=== PATIENT | male | born 1975 | race Caucasian/White ===

== ENCOUNTER → 2018-05-25 14:32 | Outpatient (CLI) | payer OTHER, MEDICAID, SELFPAY ==
--- NOTE | 2018-05-25 | DI.RAD.S_ITS ---
PROCEDURE: XR LUMBAR SPINE 2-3V INDICATIONS: LOW BACK PAIN WITH RADICULOPATHY TECHNIQUE: 3 views of the lumbar spine were acquired. COMPARISON: [facility], , -SPINE 2-3 VIEWS, 06/22/2016, 11:56. FINDINGS: Bones: 5 ekq-wvf-robaytq vertebrae are present. There is normal bony alignment established after L5-S1 posterior fixation bilaterally with interbody disc prosthesis at L5-S1 also present in expected position.. No vertebral body compression fractures. No suspicious bony lesions. Soft tissues: Overlying bowel gas pattern is normal. No suspicious soft tissue calcifications. IMPRESSION: Normal anatomic alignment established after posterior fixation and interbody disc prosthesis placement L5-S1. Dictated by: Jalen Zamorano M.D. on 05/25/2018 at 15:26 Approved by: Jalen Zamorano M.D. on 05/25/2018 at 15:27
== END ==
PROVIDERS: Family Provider Family Medicine; PCP Family Medicine; Visit Provider Family Medicine
DX: M54.5 Low back pain (principal); M54.16 Radiculopathy, lumbar region
CPT/HCPCS: 72100

== ENCOUNTER 2018-10-20 18:17 | Emergency (ER) | payer OTHER, MEDICAID, SELFPAY ==
[2018-10-20 18:54] VITALS: BP 148/93; PULSE 73; RESP 14; TEMP 37; O2SAT 97
--- NOTE | 2018-10-20 19:00 | DI.RAD.S_ITS ---
PROCEDURE: XR ANKLE LT MIN 3V INDICATIONS: rolled ankle TECHNIQUE: 3 views of the ankle were acquired. COMPARISON: None. FINDINGS: Bones: No fractures or dislocations. Ankle mortise is normally aligned. No suspicious bony lesions. Soft tissues: No tibiotalar joint effusion. Achilles tendon appears normal. IMPRESSION: No acute fracture. No osseous lesion. If clinical suspicion and/or symptoms persist, further assessment with repeat plainfilms, or advanced imaging (e.g., CT, MRI, or bone scan) may be helpful for further assessment. Dictated by: Kelsy Mcdonald M.D. on 10/20/2018 at 19:23 Approved by: Kelsy Mcdonald M.D. on 10/20/2018 at 19:23
--- NOTE | 2018-10-20 20:40 | ED_ITS ---
HPI - Extremity Injury (Lower) <Brenda Mathis PA-C - Last Filed: 10/20/18 22:22> General Chief Complaint: Extremity Injury, Lower Stated Complaint: LEFT FOOT INJURY Time Seen by Provider: 10/20/18 20:39 Source: patient Mode of arrival: ambulatory Limitations: no limitations History of Present Illness HPI Narrative: this 42-year-old male states that he was coming out of his RV when he tripped off of the bottom step and inverted his left ankle. He states that he had pain right away and was unable to bear weight on it. He states that he had to hop about 100 ft into the house. He elevated and iced it and took some ibuprofen the, and after resting a while was still unable to bear weight on it so came in here to evaluate for fracture. He denies any other injury or pain. He did take some ibuprofen at home and takes meloxicam twice daily regularly. 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 Related Data Home Medications Medication Instructions Recorded Confirmed meloxicam 7.5 mg PO BID 10/20/18 10/20/18 Allergies Allergy/AdvReac Type Severity Reaction Status Date / Time No Known Drug Allergies Allergy Verified 10/20/18 21:04 Review of Systems <Brenda Mathis PA-C - Last Filed: 10/20/18 22:22> Review of Systems ROS Unobtainable: All systems reviewed & are unremarkable except as noted in HPI and below PFSH <Brenda Mathis PA-C - Last Filed: 10/20/18 22:22> Comment: never smoker, drinks wine Exam <Brenda Mathis PA-C - Last Filed: 10/20/18 22:22> Narrative Exam Narrative: GENERAL APPEARANCE: Patient sitting comfortably, in no distress. LUNGS: Clear to auscultation bilaterally. HEART: Rate and rhythm regular without murmur, normal S1 and S2, no S3 or S4. MUSCULOSKELETAL: There is an effusion over the left lateral ankle most notable around the posterior border of the malleolus where he is tender. No tenderness anterior to the malleolus, or over the anterior or medial ankle. Achilles is intact by palpation. He has limited range of motion of the ankle secondary to tenderness. Able to plantar flex and dorsiflex the toes. No tenderness over the lower leg or foot including the metatarsals. NEUROVASCULAR: Left foot pedal pulses intact, toes are warm and pink, sensation is grossly intact Initial Vital Signs Initial Vital Signs: Vital Signs Temperature 98.6 F 10/20/18 18:54 Pulse Rate 73 10/20/18 18:54 Respiratory Rate 14 10/20/18 18:54 Blood Pressure 148/93 H 10/20/18 18:54 Pulse Oximetry 97 10/20/18 18:54 <Alexandr Bermeo DO - Last Filed: 10/21/18 06:36> Initial Vital Signs Initial Vital Signs: Vital Signs Temperature 98.6 F 10/20/18 18:54 Pulse Rate 73 10/20/18 18:54 Respiratory Rate 14 10/20/18 18:54 Blood Pressure 148/93 H 10/20/18 18:54 Pulse Oximetry 97 10/20/18 18:54 Course <Brenda Mathis PA-C - Last Filed: 10/20/18 22:22> Orders Ordered: Discontinued Medications Acetaminophen (Tylenol) 975 mg PO NOW ONE Stop: 10/20/18 21:12 Last Admin: 10/20/18 21:13 Dose: 975 mg Ibuprofen (Advil) 800 mg PO NOW ONE Stop: 10/20/18 21:02 Last Admin: 10/20/18 21:14 Dose: Vital Signs - 8 hr 10/20/18 18:54 10/20/18 21:15 10/20/18 21:20 Temperature 98.6 F Pulse Rate 73 78 Pulse Rate [Left Dorsalis Pedis] 70 Respiratory Rate 14 15 Blood Pressure 148/93 H Blood Pressure [Left Arm] 148/98 H Pulse Oximetry 97 96 <Alexandr Bermeo DO - Last Filed: 10/21/18 06:36> Orders Ordered: Discontinued Medications Acetaminophen (Tylenol) 975 mg PO NOW ONE Stop: 10/20/18 21:12 Last Admin: 10/20/18 21:13 Dose: 975 mg Ibuprofen (Advil) 800 mg PO NOW ONE Stop: 10/20/18 21:02 Last Admin: 10/20/18 21:14 Dose: Vital Signs - 8 hr 10/20/18 18:54 10/20/18 21:15 10/20/18 21:20 Temperature 98.6 F Pulse Rate 73 78 Pulse Rate [Left Dorsalis Pedis] 70 Respiratory Rate 14 15 Blood Pressure 148/93 H Blood Pressure [Left Arm] 148/98 H Pulse Oximetry 97 96 MDM - Extremity Injury (Lower) <Brenda Mathis PA-C - Last Filed: 10/20/18 22:22> Imaging Data ankle: Radiologist's impression: [address] [address] XRay Report Signed Patient: Noble Cabrera LMR#: [id number] : 1975Acct:[id number] Age/Sex: 42 / MDate of Service: 10/20/18 Loc: ED Accession Number: [id number] Procedure: XR ankle LT min 3V Ordering Provider: Alexandr Bermeo D.O. PROCEDURE: XR ANKLE LT MIN 3V INDICATIONS: rolled ankle TECHNIQUE: 3 views of the ankle were acquired. COMPARISON: None. FINDINGS: Bones: No fractures or dislocations. Ankle mortise is normally aligned. No suspicious bony lesions. Soft tissues: No tibiotalar joint effusion. Achilles tendon appears normal. IMPRESSION: No acute fracture. No osseous lesion. If clinical suspicion and/or symptoms persist, further assessment with repeat plainfilms, or advanced imaging (e.g., CT, MRI, or bone scan) may be helpful for further assessment. Dictated by: Kelsy Mcdonald M.D. on 10/20/2018 at 19:23 Approved by: Kelsy Mcdonald M.D. on 10/20/2018 at 19:23 Discharge Plan Departure Patient Disposition: Home Clinical Impression: Ankle sprain Discharge Date/Time: 10/20/18 21:48 Interventions: ED Discharge Assessment Last Done: 10/20/18 21:45 Instructions: DI for Ankle Sprain Activity Restrictions/Additional Instructions: please wear the Jose wrap and ankle immobilizer splint whenever you are bearing weight. Gentle walking is okay as you tolerate, but limit your activity and stress on the ankle. Continue your meloxicam twice daily. You can add Tylenol if needed for additional pain relief. Continue ice tomorrow. You can also apply topical pain medicine or an odnt-xbp-blvffdh lidocaine 4% patch if needed to help with pain. As we talked about, you should return to ED if any acutely worsening symptoms , and you should also follow up with your PCP for recheck in about a week. This may need repeat x-rays or further imaging studies if you are not getting better. Good luck with your driving test! Prescriptions: No Action meloxicam 7.5 mg tablet 7.5 mg PO BID RF: 0 Referrals: Judith Campbell MD [Primary Care Provider] - <Alexandr Bermeo DO - Last Filed: 10/21/18 06:36> Cosign ED Attending Gloriaature Attestation: I was immediately available in the department for consultation. Documentation has been reviewed. I agree with assessment and plan.
[2018-10-20] MEDS: ACETAMINOPHEN 325 MG TABLET 975 MG PO (21:13)
[2018-10-20 21:15] VITALS: PULSE 70
[2018-10-20 21:20] VITALS: BP 148/98; PULSE 78; RESP 15; O2SAT 96
== END 2018-10-20 21:48 | disposition home or self-care (01) ==
PROVIDERS: Emergency Provider Internal Medicine; Family Provider Family Medicine; PCP Family Medicine
DX: S93.402A Sprain of unspecified ligament of left ankle, initial encounter (principal); W01.0XXA Fall on same level from slipping, tripping and stumbling without subsequent striking against object, initial encounter
CPT/HCPCS: 29540; 73610; 99282; 99283

== ENCOUNTER → 2018-11-03 16:36 | Outpatient (CLI) | payer OTHER, MEDICAID, SELFPAY ==
--- NOTE | 2018-11-03 | DI.MRI.S_ITS ---
PROCEDURE: MR LUMBAR SPINE WO/W CON INDICATIONS: Low back pain TECHNIQUE: Noncontrast sagittal T1 spin echo and T2 fast spin echo, sagittal STIR, axial T1 and T2 fast spin echo through the lumbar spine. In cases with scoliosis, additional coronal T2 fast spin echo may be performed. After the administration of contrast, sagittal and axial T1 spin echo with fat saturation through the lumbar spine. COMPARISON: [facility], CR, XR LUMBAR SPINE 2-3V, 05/25/2018, 14:20. [facility], CR, L-SPINE 2-3 VIEWS, 06/22/2016, 11:56. FINDINGS: Image quality: Excellent. Alignment and curvature: There is trace L5-S1 anterolisthesis. Bones: Postsurgical changes compatible with L5-S1 posterior interbody fusion are noted. Mild reactive endplate changes noted adjacent the L5-S1 disc. No acute vertebral body compression fractures. No suspicious marrow enhancement. Spinal cord: Conus medullaris terminates at the L2 level. Visualized spinal cord demonstrates normal signal, without suspicious enhancement. Paraspinous soft tissues: No paravertebral masses or abnormal enhancement. L1-L2: Normal appearance. L2-L3: Loss of disc signal and slight loss of disc height. Mild, diffuse disc bulge. No central stenosis. No neural foraminal narrowing. No neural impingement. L3-L4: Loss of the signal and slight loss of disc height. Mild, diffuse disc bulge. Small central disc protrusion. Mild narrowing of the central canal. Mild bilateral neural foraminal narrowing. No neural impingement. There is a focal high intensity zone in the posterior annulus. L4-L5: Loss of disc signal and slight loss of disc height. Mild, diffuse disc bulge. Mild bilateral facet hypertrophy. Mild narrowing of the central canal. Moderate bilateral neural foraminal narrowing. No neural impingement. There is a focal high intensity zone in the posterior annulus. L5-S1: Status post fusion. Minimal, diffuse disc bulge. Moderate bilateral facet hypertrophy. No central stenosis. Mild right and ixft-hg-tinarnsc left neural foraminal narrowing. No definite neural impingement. IMPRESSION: 1. Postsurgical changes compatible L5-S1 fusion. 2. Trace L5-S1 anterolisthesis. 3. Multilevel degenerative disease. 4. Multilevel facet arthropathy. 5. Mild L3-L4 and L4-L5 central canal narrowing. 6. Moderate bilateral L4-L5 neural foraminal narrowing. Mild right and mild to moderate left L5-S1 neural foraminal narrowing. Mild bilateral L3-L4 neural foraminal narrowing. 7. No neural impingement. 8. L3-L4 and L4-L5 disc annulus fissures. 9. No suspicious postcontrast enhancement Dictated by: Neda Rosen MD, PhD on 11/06/2018 at 10:19 Approved by: Neda Rosen MD, PhD on 11/06/2018 at 10:26
== END ==
PROVIDERS: PCP Family Medicine; Visit Provider Family Medicine
DX: M51.16 Intervertebral disc disorders with radiculopathy, lumbar region (principal); M47.26 Other spondylosis with radiculopathy, lumbar region; M48.061 Spinal stenosis, lumbar region without neurogenic claudication; M48.07 Spinal stenosis, lumbosacral region; M43.17 Spondylolisthesis, lumbosacral region; Z98.1 Arthrodesis status
CPT/HCPCS: 72158

== ENCOUNTER → 2018-12-04 08:39 | Outpatient (CLI) | payer OTHER, MEDICAID, SELFPAY ==
--- NOTE | 2018-12-04 | DI.CT.S_ITS ---
PROCEDURE: CT LUMBAR SPINE WO CON INDICATIONS: CHRONIC MIDLINE LOW BACK PAIN WITHOUT SCIATICA TECHNIQUE: Noncontrast 3 mm thick sections acquired from the T12 level to the sacrum. Sagittal and coronal reformats were constructed. For radiation dose reduction, the following was used: automated exposure control. COMPARISON: None. FINDINGS: Image quality: Excellent. Bones: Postsurgical changes compatible with L5-S1 fusion are noted. Postsurgical changes compatible with partial L5-S1 facetectomy noted. Orthopedic hardware is intact. No lucencies are identified at the bone hardware interface. There is trace L5-S1 anterolisthesis. No acute vertebral body compression fractures. No suspicious lytic or blastic bony lesions. Bilateral L5 pars interarticularis defects are noted. T12-L1: Normal appearance. L1-L2: Normal appearance. L2-L3: The disc height is normal. Mild, diffuse disc bulge. No central stenosis. No neural foraminal narrowing. No neural impingement. L3-L4: Disc height is normal. Mild, diffuse disc bulge. Mild ligamentum flavum hypertrophy. Mild to moderate narrowing of the central canal. Mild bilateral neural foraminal narrowing. No neural impingement. L4-L5: Disc height is normal. Mild, diffuse disc bulge. Mild bilateral facet hypertrophy. Mild to moderate narrowing of the central canal. Mild bilateral neural foraminal narrowing. No neural impingement. L5-S1: Status post fusion. No central stenosis. Moderate right and mgslpeet-xq-ycbwgd left neural foraminal narrowing with slight flattening deformity of the exiting left L5 nerve root. Soft tissues: No retroperitoneal masses or hematomas. Visualized aorta is normal in caliber. IMPRESSION: 1. Status post L5-S1 fusion. 2. Multilevel degenerative disease. 3. Mild to moderate L3-L4 and L4-L5 central canal narrowing. 4. Mild bilateral L3-L4 and L4-L5 neural foraminal narrowing. Moderate right and moderate to severe left L5-S1 neural foraminal narrowing. 5. No vertebral body compression fractures. Dictated by: Neda Rosen MD, PhD on 12/04/2018 at 14:56 Approved by: Neda Rosen MD, PhD on 12/04/2018 at 15:03
== END ==
PROVIDERS: PCP Family Medicine; Visit Provider Neurological Surgery
DX: M54.5 Low back pain (principal); M51.36 Other intervertebral disc degeneration, lumbar region; M48.061 Spinal stenosis, lumbar region without neurogenic claudication; G89.29 Other chronic pain; M48.07 Spinal stenosis, lumbosacral region; Z98.1 Arthrodesis status
CPT/HCPCS: 72131

== ENCOUNTER 2019-01-23 12:40 | Emergency (ER) | payer OTHER, MEDICAID, SELFPAY ==
[2019-01-23 12:56] VITALS: BP 158/100; PULSE 65; RESP 19; TEMP 36.9; O2SAT 64
--- NOTE | 2019-01-23 14:58 | PC.NURSE ---
hx of lumbar fusion and laminectomy 2.5 years ago. tuesday picked up 15-20 pound child, twisted back from right to center, now with shooting back pain, has been taking ice,melaxicam and tylenol without relief requesting MRI of back, reports, has follow up appt with neuro on tuesday at [facility]. denies fever,nausea or vomiting, denies radiating pain bilateral lower legs, denies bowel or bladder issue.
--- NOTE | 2019-01-23 15:16 | ED_ITS ---
HPI - Back Pain/Injury <Brenda Mathis PA-C - Last Filed: 01/23/19 19:09> General Chief Complaint: Back Pain/Injury Stated Complaint: LOW BACK PAIN Time Seen by Provider: 01/23/19 14:58 Source: patient Mode of arrival: ambulatory Limitations: no limitations History of Present Illness HPI Narrative: This 43-year-old gentleman who has a history of chronic back pain and spinal stenosis comes to ED requesting MRI prior to neurology consultation on Tuesday (he states he is getting a opinion). He has had increased pain since Tuesday morning, when he was sitting on the floor with his kids, turned to his right and pulled his son, who weighs 15-20 lb, over to him. He states he had acute pain in his low back and has been persistent ever since. He states it is difficult to get comfortable at night, pain increases when standing and also trying to twist or bend. He denies any radiation of pain. He denies any weakness or paresthesia in his extremities. He denies any bowel or bladder ch anges or numbness in the groin. No new fever or other complaints on systems review. He feels that this was related to lifting his son while twisting. He has been taking his meloxicam as well as some Tylenol without relief. He does have cyclobenzaprine at home but has not tried this. Related Data Home Medications Medication Instructions Recorded Confirmed meloxicam 7.5 mg PO BID 10/20/18 10/20/18 Previous Rx's Medication Instructions Recorded lidocaine 2 patch TOP DAILY #30 each 01/23/19 oxycodone-acetaminophen [Endocet] 1 tab PO Q4-6H PRN #5 tab 01/23/19 Allergies Allergy/AdvReac Type Severity Reaction Status Date / Time No Known Drug Allergies Allergy Verified 10/20/18 21:04 Review of Systems <Brenda Mathis PA-C - Last Filed: 01/23/19 19:09> Review of Systems ROS Unobtainable: All systems reviewed & are unremarkable except as noted in HPI and below PFSH <Brenda Mathis PA-C - Last Filed: 01/23/19 19:09> Medical History (Updated 01/23/19 @ 15:47 by Brenda Mathis PA-C) Chronic back pain (Chronic) Spinal stenosis (Chronic) Surgical History Previous back surgery (Resolved) Family History (Updated 10/20/18 @ 21:08 by Brenda Mathis PA-C) Other Family history non-contributory Social History Smoking Status: Never smoker Family History (Updated 10/20/18 @ 21:08 by Brenda Mathis PA-C) Other Family history non-contributory Social History Smoking Status: Never smoker Exam <Brenda Mathis PA-C - Last Filed: 01/23/19 19:09> Narrative Exam Narrative: GENERAL APPEARANCE: Patient sitting comfortably, in no distress. PULMONARY: Lungs clear to auscultation bilaterally CV: Regular rhythm regular without murmur, normal S1 and S2, no S3 or S4 MUSCULOSKELETAL: No lumbosacral point tenderness but he is tender throughout the bilateral mid to inferior lumbosacral paraspinal musculature, there are palpable knots on the left. No tenderness over the hips or SI joints. he is stiff and tender with moving from supine to sit. Limited trunk flexion to 45? secondary to tenderness. other range of motion limited secondary to tenderness. Lower extremity strength 5/5 bilateral hip flexors, knee extensors, foot plantar flexion. Negative modified straight leg raise NEUROLOGIC: Sensation grossly intact throughout the extremities DERMATOLOGIC: No exanthem Initial Vital Signs Initial Vital Signs: Vital Signs Temperature 98.4 F 01/23/19 12:56 Pulse Rate 65 01/23/19 12:56 Respiratory Rate 01/23/19 12:56 Blood Pressure 158/100 H 01/23/19 12:56 Pulse Oximetry 64 L 01/23/19 12:56 <Yfn Willis DO - Last Filed: 01/23/19 19:18> Initial Vital Signs Initial Vital Signs: Vital Signs Temperature 98.4 F 01/23/19 12:56 Pulse Rate 65 01/23/19 12:56 Respiratory Rate 01/23/19 12:56 Blood Pressure 158/100 H 01/23/19 12:56 Pulse Oximetry 64 L 01/23/19 12:56 Course <Brenda Mathis PA-C - Last Filed: 01/23/19 19:09> Additional Information: Advised patient based on his history and findings this appears to be acute strain on top of his chronic spinal stenosis pain. No evidence of acute neurologic emergency. He will restart his cyclobenzaprine. He has taken Endocet in the past and was given a few to use as needed. Reminded not to drive with these medications. Prescription for lidocaine patches also given. Advised follow-up with his PCP to assess progress and determine whether additional or change in pain medications needed this week and to see whether any additional imaging needed prior to his 2nd neurology consultation depending upon his progress. Vital Signs - 8 hr 01/23/19 12:56 01/23/19 15:58 Temperature 98.4 F Pulse Rate 65 55 L Respiratory Rate 19 16 Blood Pressure 158/100 H Blood Pressure [Left Arm] 110/69 Pulse Oximetry 64 L 100 <Yfn Willis DO - Last Filed: 01/23/19 19:18> Vital Signs - 8 hr 01/23/19 12:56 01/23/19 15:58 Temperature 98.4 F Pulse Rate 65 55 L Respiratory Rate 19 16 Blood Pressure 158/100 H Blood Pressure [Left Arm] 110/69 Pulse Oximetry 64 L 100 Discharge Plan Departure Patient Disposition: Home Clinical Impression: Strain of lumbar region Qualifiers: Encounter type: initial encounter Qualified Code(s): S39.012A - Strain of muscle, fascia and tendon of lower back, initial encounter Spinal stenosis, lumbar region Qualifiers: Neurogenic claudication status: without neurogenic claudication Qualified Code(s): M48.061 - Spinal stenosis, lumbar region without neurogenic claudication Discharge Date/Time: 01/23/19 16:05 Interventions: ED Discharge Assessment Last Done: 01/23/19 16:04 Instructions: DI for Low Back Pain, DI for Back Spasm Activity Restrictions/Additional Instructions: You should return as we talked about if you have any acutely worsening symptoms or new symptoms such as numbness in your groin, weakness in your extremities, or inability to urinate. Otherwise, please continue your meloxicam 7.5 mg twice daily (or 15 mg once daily). Restart your cyclobenzaprine (the usual dose is 10 mg every 8 hours, but remember it can make you sleepy and not to drive, so if you need try taking 1/2 tab during the day and a full tab at night). I have given you a prescription for lidocaine patches that you can wear for 12 hours daily, and also a few Percocet since that has helped you in the past. Please call your PCP office to arrange follow-up in the next day or 2 to assess her progress and see if you need to continue or change pain medications prior to your neurology appointment as well as to determine whether you need further imaging studies (I suspect based on your exam today your pain is due to acute muscle strain on top of your chronic spine pain). Prescriptions: New oxycodone-acetaminophen [Endocet] 5-325 mg tablet 1 tab PO Q4-6H PRN (Reason: acute back pain) Qty: 5 RF: 0 lidocaine 5 % adhesive patch,medicated 2 patch TOP DAILY Qty: 30 RF: 0 No Action meloxicam 7.5 mg tablet 7.5 mg PO BID RF: 0 Referrals: Judith Campbell MD [Primary Care Provider] - <Yfn Willis DO - Last Filed: 01/23/19 19:18> Cosign ED Attending Gloriaature Attestation: I was available for consultation during this patient's emergency department encounter
[2019-01-23 15:58] VITALS: BP 110/69; PULSE 55; RESP 16; O2SAT 100
== END 2019-01-23 16:05 | disposition home or self-care (01) ==
PROVIDERS: Emergency Provider Internal Medicine; PCP Family Medicine
DX: S39.012A Strain of muscle, fascia and tendon of lower back, initial encounter (principal); M48.061 Spinal stenosis, lumbar region without neurogenic claudication
CPT/HCPCS: 99282; 99283